=== PATIENT | female | born 1935 | race Caucasian/White ===

== ENCOUNTER 2017-04-15 17:19 | Emergency (ER) | payer BC ==
[~2017-04-15] VITALS: Ht 157.5 cm; Wt 86.9 kg
[2017-04-15 17:51] LABS: ADD MIUA? YES; BILIRUBIN NEGATIVE; BLOOD SMALL; COLOR STRAW ((YELLOW)); GLUCOSE (STRIP) NEGATIVE; KETONES NEGATIVE; LEUKOCYTES MODERATE; NITRITE NEGATIVE; PROTEIN (STRIP) NEGATIVE; SPECIFIC GRAVITY 1.005 (1.000-1.030); UROBILINOGEN 0.2 MG/DL (0.2-1.0)
[2017-04-15 18:03] LABS: BACTERIA NONE SEEN /HPF; CASTS NONE SEEN /LPF; CRYSTALS NONE SEEN; EPITHELIAL CELLS NONE SEEN /HPF; MUCUS NONE SEEN /LPF; RED BLOOD CELLS 0-5 /HPF (0-5); UCUL ADDED? YES
[2017-04-15 18:17] LABS: HEMATOCRIT 38.2 % (36.0-46.0); MCH 31.6 PG (29.0-34.0); MCHC 33.8 G/DL (30.0-36.0); MCV 93.6 FL (83-99); MEAN PLAT.VOLUME 9.8 uM^3 (9.5-12.4); PLATELET COUNT 374 K/uL (156-360); RBC DIS.WIDTH-CV 13.5 % (11.8-14.6); RBC DIS.WIDTH-SD 46.3 % (39-53); RED BLOOD COUNT 4.08 M/uL (3.80-5.20); WHITE BLOOD COUNT 12.5 K/uL (4.1-10.2)
[2017-04-15 18:31] LABS: CHLORIDE 102 mEq/L (99-109); POTASSIUM 4.1 mEq/L (3.7-5.4); SODIUM 136 mEq/L (136-147)
[2017-04-15 18:34] LABS: GLUCOSE 151 mg/dL (70-99)
[2017-04-15 18:35] LABS: ANION GAP 12 MEQ/L (2-14)
[2017-04-15 18:36] LABS: TOTAL BILIRUBIN 0.4 mg/dL (0.0-1.0)
[2017-04-15 18:37] LABS: ALKALINE PHOSPHATASE 101 IU/L (3-129)
[2017-04-15 18:38] LABS: GFR ESTIMATE (CALCULATED) 38 mL/min/
[2017-04-15 18:39] LABS: UREA NITROGEN (BUN) 20 mg/dL (9-23)
[2017-04-15 18:41] LABS: LIPASE 27 U/L (1.0-51.0)
[2017-04-15] MEDS ORDERED: CIPRO500 MG PO (21:48)
[2017-04-15] MEDS ORDERED: TRAMADOL HCL50 MG PO (21:48)
[2017-04-15 22:06] VITALS: BP 163/81
== END 2017-04-15 22:06 | disposition home or self-care (01) ==
LOC: EME 17:19
PROVIDERS: Physician Assistant
DX: N28.89 Other specified disorders of kidney and ureter (principal); N10 Acute pyelonephritis; E11.65 Type 2 diabetes mellitus with hyperglycemia; I10 Essential (primary) hypertension; Z88.0 Allergy status to penicillin; Z87.891 Personal history of nicotine dependence
CPT/HCPCS: 71020; 74176; 80048; 80053; 81003; 83690; 85027; 87077; 87086; 87186; 93005; 99281; 99284

== ENCOUNTER 2017-09-16 22:11 | Inpatient (IN) | payer BC ==
[~2017-09-16] VITALS: Ht 157.5 cm; Wt 59.2 kg
[~2017-09-16 22:11] MED LIST: CIPRO500 MG PO; TRAMADOL HCL50 MG PO
[2017-09-16 22:57] LABS: BASOPHIL (%) 0.2 % (0-1); BASOPHIL COUNT 0.1 K/uL (0-0.1); EOSINOPHIL (%) 0 % (0-5); HEMATOCRIT 36.4 % (36.0-46.0); HEMOGLOBIN 12.5 G/DL (11.9-15.5); IMMATURE GRANULOCYTE (%) 0.8 % (0.0-0.7); LYMPHOCYTE (%) 2.3 % (15-42); LYMPHOCYTE COUNT 0.6 K/uL (1.0-2.8); MCH 32.4 PG (29.0-34.0); MCHC 34.3 G/DL (30.0-36.0); MCV 94.3 FL (83-99); MONOCYTE (%) 6.9 % (3-12); MONOCYTE COUNT 1.8 K/uL (0-0.8); NEUTROPHIL (%) 89.8 % (45-76); NEUTROPHIL COUNT 23.2 K/uL (1.8-6.4); PLATELET COUNT 217 K/uL (156-360); RBC DIS.WIDTH-CV 13.7 % (11.8-14.6); RBC DIS.WIDTH-SD 47.1 % (39-53); RED BLOOD COUNT 3.86 M/uL (3.80-5.20); WHITE BLOOD COUNT 25.8 K/uL (4.1-10.2)
[2017-09-16 23:07] LABS: CHLORIDE 103 mEq/L (99-109); POTASSIUM 4.1 mEq/L (3.7-5.4); SODIUM 135 mEq/L (136-147)
[2017-09-16 23:10] LABS: GLUCOSE 225 mg/dL (70-99); TOTAL PROTEIN 7.3 g/dL (6.4-8.3)
[2017-09-16 23:12] LABS: TOTAL BILIRUBIN 1.7 mg/dL (0.0-1.0)
[2017-09-16 23:13] LABS: ALKALINE PHOSPHATASE 93 IU/L (3-129); CREATININE 1.3 mg/dL (0.6-1.3); GFR ESTIMATE (CALCULATED) 42 mL/min/
[2017-09-16 23:14] LABS: UREA NITROGEN (BUN) 26 mg/dL (9-23)
[2017-09-16 23:15] LABS: AST (GOT) 17 IU/L (2-34)
[2017-09-16 23:16] LABS: ALT (GPT) 18 IU/L (3-49)
[2017-09-16] MEDS ORDERED: METOPROLOL SUCC25 MG PO (23:30)
[2017-09-16] MEDS ORDERED: MAXZIDE 75/501 EACH PO (23:30)
[2017-09-16] MEDS ORDERED: COZAAR25 MG PO (23:30)
[2017-09-16] MEDS ORDERED: GLIPIZIDE5 MG PO (23:30)
[2017-09-16] MEDS ORDERED: ONE DAILY ENER1 EACH PO (23:31)
[2017-09-16] MEDS ORDERED: ADULT ASPIRIN R81 MG PO (23:31)
[2017-09-16] MEDS ORDERED: PROBIOTIC1 EAC1 PO (23:31)
[2017-09-17] VITALS (7 sets, daily range): BP systolic 99–146; BP diastolic 52–93
[2017-09-17 08:33] LABS: HEMATOCRIT 34.7 % (36.0-46.0); HEMOGLOBIN 11.8 G/DL (11.9-15.5); MCH 32.2 PG (29.0-34.0); MCV 94.6 FL (83-99); PLATELET COUNT 204 K/uL (156-360); RBC DIS.WIDTH-SD 48.5 % (39-53); RED BLOOD COUNT 3.67 M/uL (3.80-5.20); WHITE BLOOD COUNT 26.7 K/uL (4.1-10.2)
[2017-09-17 09:05] LABS: CHLORIDE 100 MEQ/L (99-109); CREATININE 1.2 MG/DL (0.6-1.3); GFR ESTIMATE (CALCULATED) 46 mL/min/; GLUCOSE 237 mg/dL (70-99); POTASSIUM 3.7 MEQ/L (3.7-5.4); SODIUM 134 MEQ/L (136-147); UREA NITROGEN (BUN) 23 mg/dL (9-23)
[2017-09-18 02:16] LABS: APPEARANCE SL.HAZY ((CLEAR)); BILIRUBIN NEGATIVE; BLOOD SMALL; COLOR YELLOW ((YELLOW)); GLUCOSE (STRIP) 50; KETONES NEGATIVE; LEUKOCYTES LARGE; NITRITE NEGATIVE; PROTEIN (STRIP) NEGATIVE; SPECIFIC GRAVITY 1.016 (1.000-1.030); UROBILINOGEN 0.2 MG/DL (0.2-1.0)
[2017-09-18 02:20] LABS: BACTERIA RARE /HPF; EPITHELIAL CELLS RARE /HPF; MUCUS NONE SEEN /LPF; UCUL ADDED? YES; WHITE BLOOD CELLS 20-30 /HPF (0-5)
[2017-09-18 03:16] VITALS: BP 140/67
[2017-09-18 05:56] LABS: HEMATOCRIT 33.1 % (36.0-46.0); HEMOGLOBIN 11.4 G/DL (11.9-15.5); MCH 32.5 PG (29.0-34.0); MCHC 34.4 G/DL (30.0-36.0); MCV 94.3 FL (83-99); PLATELET COUNT 185 K/uL (156-360); RBC DIS.WIDTH-CV 13.9 % (11.8-14.6); RBC DIS.WIDTH-SD 48.4 % (39-53); RED BLOOD COUNT 3.51 M/uL (3.80-5.20); WHITE BLOOD COUNT 21.5 K/uL (4.1-10.2)
[2017-09-18 06:13] LABS: CHLORIDE 101 MEQ/L (99-109); CREATININE 1.3 MG/DL (0.6-1.3); GFR ESTIMATE (CALCULATED) 42 mL/min/; POTASSIUM 3.5 MEQ/L (3.7-5.4); SODIUM 135 MEQ/L (136-147); UREA NITROGEN (BUN) 25 mg/dL (9-23)
[2017-09-18 06:24] LABS: GLUCOSE 106 mg/dL (70-99)
[2017-09-18 06:56] VITALS: BP 120/59
[2017-09-18 07:40] LABS: ABS NEUTROPHIL COUNT 19.4; ANISOCYTOSIS 1+; ATYPICAL LYMPHOCYTE 0.9 %; BAND NEUTROPHILS 18.5 % (0-8.0); EOSINOPHIL ABS CT 0.1; EOSINOPHILS 0.4 % (0-5.0); LYMPHOCYTES 5.1 % (15.0-45.0); MACROCYTES 1+; MONOCYTES 3.4 % (0-9.0); SEG.NEUTROPHILS 71.7 % (46.0-76.0)
[2017-09-18 10:35] VITALS: BP 115/57
[2017-09-18 16:00] VITALS: BP 134/83
[2017-09-18 23:26] VITALS: BP 124/69
[2017-09-19 06:49] LABS: HEMATOCRIT 33.9 % (36.0-46.0); HEMOGLOBIN 11.5 G/DL (11.9-15.5); MCH 32.4 PG (29.0-34.0); MCHC 33.9 G/DL (30.0-36.0); MCV 95.5 FL (83-99); PLATELET COUNT 212 K/uL (156-360); RBC DIS.WIDTH-CV 14.4 % (11.8-14.6); RBC DIS.WIDTH-SD 50.1 % (39-53); RED BLOOD COUNT 3.55 M/uL (3.80-5.20); WHITE BLOOD COUNT 11.9 K/uL (4.1-10.2)
[2017-09-19 07:22] VITALS: BP 143/60
[2017-09-19 07:24] LABS: CHLORIDE 106 MEQ/L (99-109); CREATININE 1.1 MG/DL (0.6-1.3); GFR ESTIMATE (CALCULATED) 51 mL/min/; GLUCOSE 108 mg/dL (70-99); POTASSIUM 4.2 MEQ/L (3.7-5.4); SODIUM 138 MEQ/L (136-147); UREA NITROGEN (BUN) 23 mg/dL (9-23)
[2017-09-19] MEDS ORDERED: CEFDINIR300 MG PO (09:51)
== END 2017-09-19 17:26 | disposition home or self-care (01) | DRG 194 ==
LOC: EME → EDBD 22:11 → EDOF 09-17 00:43 → 5EAST 09-17 00:43 → ENRESERV 09-17 00:45 → 5EAST 09-17 02:09 → ENPENDDIS 09-19 → 5EAST 09-19 17:26
PROVIDERS: Emergency Medicine; Hospitalist; Internal Medicine
DX: J18.9 Pneumonia, unspecified organism (principal); Z68.43 Body mass index [BMI] 50.0-59.9, adult; E66.01 Morbid (severe) obesity due to excess calories; I10 Essential (primary) hypertension; R41.82 Altered mental status, unspecified; E11.9 Type 2 diabetes mellitus without complications; Z88.0 Allergy status to penicillin; Z88.1 Allergy status to other antibiotic agents; Z87.891 Personal history of nicotine dependence
CPT/HCPCS: 70450; 71046; 80048; 80053; 81003; 82948; 83605; 85025; 85027; 87040; 87070; 87086; 87205; 87449; 87502; 93005; 99202; 99281; 99285; J0456; J0696; J1644; J1815; J1956; J7030; J7120